=== PATIENT | female | born 1975 | race Caucasian/White ===

== ENCOUNTER → 2016-12-12 | Outpatient (CLI) | payer OTHER | LOC: BMCIMAGING 14:55 | DX: Z13.0 Encounter for screening for diseases of the blood and blood-forming organs and certain disorders involving the immune mechanism (principal) ==

== ENCOUNTER → 2017-02-27 | Outpatient (CLI) | payer OTHER | LOC: BMCIMAGING 08:40 | PROVIDERS: ATTEND Internal Medicine Endocrinology, Diabetes & Metabolism | DX: E04.1 Nontoxic single thyroid nodule (principal) | CPT/HCPCS: 76536-PO ==

== ENCOUNTER → 2017-10-30 | Outpatient (CLI) | payer OTHER | LOC: BMCIMAGING 08:01 | PROVIDERS: ATTEND Physician Assistant | DX: S62.501D Fracture of unspecified phalanx of right thumb, subsequent encounter for fracture with routine healing (principal) ==

== ENCOUNTER → 2018-06-15 | Outpatient (CLI) | payer OTHER | LOC: BMCIMAGING 15:04 | PROVIDERS: ATTEND Orthopaedic Surgery Hand Surgery | DX: S62.647A Nondisplaced fracture of proximal phalanx of left little finger, initial encounter for closed fracture (principal); X58.XXXA Exposure to other specified factors, initial encounter ==

== ENCOUNTER → 2018-06-30 | Outpatient (CLI) | payer OTHER | LOC: BMCIMAGING 14:23 | PROVIDERS: ATTEND Orthopaedic Surgery Hand Surgery | DX: S62.647D Nondisplaced fracture of proximal phalanx of left little finger, subsequent encounter for fracture with routine healing (principal) ==

== ENCOUNTER → 2018-08-10 | Outpatient (CLI) | payer OTHER | LOC: BMCIMAGING 13:43 | PROVIDERS: ATTEND Orthopaedic Surgery Hand Surgery | DX: S62.617D Displaced fracture of proximal phalanx of left little finger, subsequent encounter for fracture with routine healing (principal) ==

== ENCOUNTER → 2018-12-08 | Outpatient (CLI) | payer OTHER | LOC: BMCIMAGING 16:20 | PROVIDERS: ATTEND Orthopaedic Surgery Hand Surgery | DX: S62.617D Displaced fracture of proximal phalanx of left little finger, subsequent encounter for fracture with routine healing (principal) ==